=== PATIENT | female | born 1975 | race Caucasian/White ===

== ENCOUNTER 2016-04-15 15:15 | Outpatient (RCR) | payer OTHER ==
--- NOTE | 2016-03-14 15:06 | PT/OT/ST INITIAL EVALUATION ---
[facility]. PHYSICAL/OCCUPATIONAL THERAPY [address] [place] [id number] PLAN OF CARE/ASSESSMENT FOR OUTPATIENT REHABILITATION (Complete for Initial Claims Only) 1. PATIENT'S NAME Pooja Martinez 2. ACC. No [id number] 3. PRIMARY DX Right hip pain 4. SECONDARY DX Hip weakness 5. ONSET DATE End of December 2015 6. REFERRAL DATE 7. SOC. DATE/TIME 03/08/2016 3:09 p.m. 8. PRIOR LEVEL OF FUNCTION; PERTINENT HISTORY (Prior therapy results, reason for referral.) S: Prior to therapy, the patient did consent to today's evaluation and treatment. The patient is a 40-year-old female referred to physical therapy by Dr. You to address right hip pain. The patient does rate her overall and general health as good. The patient states that at the end of December 2015, she began to experience right hip and thigh pain for unknown reasons. The patient does state at the time she had started yoga and was additionally participating in volleyball, but knows of no specific incident that caused this condition. The patient states she has tried new shoes, thinking this could be a contributing factor, with no relief. The patient does state that the right hip does feel unstable. Prior function: Includes the patient being able to participate in high-level activities including yoga, volleyball and unlimited activities with no pain. Current function: Currently the patient is having pain with walking, as this pulls in the front of her hip and down to the inside of her knee. The patient additionally states activities such as getting out of a car or any activities that causes her to adduct her right lower extremity increases the pain as well and causes a catching in the right hip. The patient is unable to work out due to this as well. Rolling in bed increases her pain as well causing her to toss and turn at night due to pain in the hip. Therapy History: The patient has had no previous physical therapy for this condition, but has received a massage, which did not help significantly. No obstacles to delivery of care are observed. Maximal pain level 9/10. The patient states it is at a constant level of 7/10. The patient describes the pain as a sharp shooting pain that is occasionally burning and aching at the right anterior hip. Aggravating factors include stairs. Relieving factors include ibuprofen. Diagnostic tests: No diagnostic tests have been performed at this time. Past medical history: Does include previous bilateral knee scopes, lax joints. None other significant is reported. Medication list: [id number] medications only. The patient's goal for physical therapy is to be able to get rid of the pain and back to normal activities including working out. 9. INITIAL ASSESSMENT/SAFETY PRECAUTIONS/MEDICAL COMPLICATIONS (Level of function at start of care. Be specific, use objective measures, list problems.) O: APPEARANCE AND OBSERVATION: The patient presents as a middle aged female in apparently healthy condition. She does ambulate with a normalized gait pattern; however, she does have increased external rotation on the right lower extremity as compared to the left. The patient additionally with bed mobility did report catching in the right hip when adducting to bring her leg onto the bed. PALPATION: With palpation the patient has significant increased tone and tightness throughout the adductor group, especially gracilis and adductor yaqulein. The patient has point tenderness at the hip flexor on the right, but this required deep palpation to reproduce indicating probable iliacus/psoas tightness and involvement with potential involvement of Sartorius and rectus femoris. SPECIAL TESTS: Include a negative TARIQ test. The patient had a slight increase in laxity at the joint with inferior glide at the right hip, as compared to the left. RANGE OF MOTION/FLEXIBILITY: Throughout bilateral hamstrings, piriformis, adductors is within normal limits and grossly equal bilaterally. STRENGTH: Throughout bilateral lower extremity is grossly 4+/5 throughout with the exception of hip abduction, which is 3-/5 bilaterally with difficulty maintaining hip abduction once placed there by the therapist. TODAY'S TREATMENT: Following the initial evaluation ultrasound treatment was performed throughout the adductor group. ASTYM treatment was then performed through the right hip per protocol. Stretching was also performed and issued to the patient. 10. INITIAL POC: (Specify procedures, modalities, short and penitentiary goals) A: The patient presents at physical therapy with diagnosis of right hip pain with resultant increased tone of the right adductors, increased pain in the right adductor and hip flexor, decreased sleeping ability. PROGNOSIS: This patient has a good prognosis with regular therapy attendance and compliance with home exercise program. This patient is expected to benefit from physical therapy services in order to decreased pain, increased hip abduction strength to return to full prior activities. OUTCOME ASSESSMENT: Lower extremity functional index which scored 50/80. GOALS: 1. The patient to be independent and compliant with home exercise program in 1 week. 2. The patient with a 50% decrease in maximum right hip pain in 2 weeks to allow sleeping at night. 3. The patient with bilateral hip adduction at least 4/5 throughout in 5 weeks to allow getting out of the car with no pain. 4. The patient with a lower extremity functional index at least 70/80 in 6 weeks to allow returning to working out. The diagnosis, prognosis, treatment plan, risks and expected outcome were discussed with the patient and the patient did agree to today's established plan of care. P: Plan to treat the patient 2 times per week for 6 weeks in order to address right hip pain. Therapeutic treatments to include modalities to decrease pain, inflammation and spasming. Manual therapy techniques as indicated. Therapeutic exercise targeting active range of motion and strengthening, gait training, balance and proprioceptive training, and patient education and home exercise program to be advanced as warranted. 11. PHYSICIAN SIGNATURE ? ON FILE OR ENTER HERE: 12. DATE: I certify the need for these services furnished under this plan of care and if for partial hospitalization. 13. CERTIFICATION FROM THROUGH
[~2016-04-15 15:15] MED LIST: CEPH-507 PO; PHEN-640 PO; allegra; bc
== END 2016-04-21 09:07 | disposition home or self-care (01) ==
LOC: PT 15:15
PROVIDERS: ATTEND Family Medicine
DX: M79.651 Pain in right thigh (principal); M25.551 Pain in right hip

== ENCOUNTER → 2016-04-22 | Outpatient (CLI) | payer OTHER ==
--- NOTE | 2016-04-22 13:13 | Diagnostic Imaging Report ---
PROCEDURE: MRI right joint lower extremity without contrast. TECHNIQUE: Multiplanar, multisequence non contrast-enhanced MRI of the right lower extremity was accomplished. INDICATION: Right hip pain. COMPARISON: None available. FINDINGS: Well-defined T2 hyperintensities with circumscribed margins connecting with the central canal within the sacrum are present, consistent with Tarlov cysts. Bone marrow signal intensity is mildly heterogeneous without focal abnormality. In particular, no marrow edema. Bone marrow signal intensity within the bilateral femoral heads in particular is unremarkable without evidence of avascular necrosis. Insertion site of the hamstrings is unremarkable. Minimally increased T2-weighted signal is identified just lateral to the greater trochanters bilaterally. Trace right hip joint effusion. No significant left hip joint effusion. No additional focal fluid collection. Acetabular labrum is not optimally evaluated without the use of intra-articular contrast. No significant free fluid within the pelvis. No muscular atrophy or hypertrophy. The urinary bladder is decompressed. IMPRESSION: 1. Minimally increased T2-weighted signal overlying the bilateral greater trochanters. Findings are favored to relate to mild trochanteric bursitis. 2. Trace right hip joint effusion. 3. No evidence of an acute osseous abnormality or avascular necrosis of the femoral heads. 4. Additional findings as above. Dictated by: Dictated on workstation # [id number]
== END ==
LOC: RAD 09:45
PROVIDERS: ATTEND Family Medicine
DX: M25.551 Pain in right hip (principal); M25.451 Effusion, right hip
CPT/HCPCS: 73721

== ENCOUNTER → 2016-05-16 | Outpatient (CLI) | payer OTHER | LOC: RAD 08:30 | PROVIDERS: ATTEND Orthopaedic Surgery | DX: M25.551 Pain in right hip (principal); Z32.02 Encounter for pregnancy test, result negative | CPT/HCPCS: 36415; 73525; 73722; 84703; A9579 ==

== ENCOUNTER → 2016-06-30 | Outpatient (CLI) | payer OTHER ==
[~2016-06-30] MED LIST changes: -CEPH-507 PO; -PHEN-640 PO; +ROPIVACAINE 1% 10 MG/ML (NAROPIN) 10 ML AMPUL ONE; +SODIUM CHLORIDE VIAL (PF) 10 ML IV ONE; -allegra; -bc; +methylPREDNISolone 80 MG/ML (DEPO MEDROL) VIAL IM ONE
== END ==
LOC: PMC 09:26
PROVIDERS: ATTEND Orthopaedic Surgery Orthopaedic Trauma
DX: M76.11 Psoas tendinitis, right hip (principal)
CPT/HCPCS: 20610; J1040; J2795; J7050

== ENCOUNTER → 2016-08-01 | Outpatient (CLI) | payer OTHER ==
[~2016-08-01] MED LIST changes: +CEPH-507 PO; +PHEN-640 PO; -ROPIVACAINE 1% 10 MG/ML (NAROPIN) 10 ML AMPUL ONE; -SODIUM CHLORIDE VIAL (PF) 10 ML IV ONE; +allegra; +bc; -methylPREDNISolone 80 MG/ML (DEPO MEDROL) VIAL IM ONE
--- NOTE | 2016-08-01 15:22 | Diagnostic Imaging Report ---
INDICATION: Fall, pain and swelling. EXAMINATION: Left elbow, 08/01/2016. FINDINGS: Three views of the elbow. There is no joint effusion. There are no acute fractures or dislocations. Mild spurring at the radial head is seen. IMPRESSION: 1. Degenerative findings but no acute abnormalities appreciated. If pain persists, a followup in 7-10 days recommended. Dictated by: Dictated on workstation # [id number]
== END ==
LOC: RAD 14:09
PROVIDERS: ATTEND Family Medicine
DX: M25.521 Pain in right elbow (principal)
CPT/HCPCS: 73080

== ENCOUNTER 2016-08-02 15:15 | Outpatient (RCR) | payer OTHER ==
--- NOTE | 2016-07-28 15:17 | PT/OT/ST INITIAL EVALUATION ---
Department of Health and Human Services Form Approved Health Care Financing Administration OMB No. [id number] PLAN OF CARE/ASSESSMENT FOR OUTPATIENT REHABILITATION (Complete for Initial Claims Only) 1. PATIENT'S NAME Pooja Martinez 2. ACC # [id number] 3. HICN NA 4. PROVIDER NO. [id number] 5. TYPE: PT 6. PRIOR HOSPITALIZATION NA 7. PRIMARY DX Right iliopsoas tendinitis. 8. SECONDARY DX NA 9. ONSET DATE December 2015 10. REFERRAL DATE Na 11. SOC. DATE 07-13-16 12. TIME OF EVAL 9:08 a.m. 12. REFERRING PHYSICIAN hKanh Lora MD 13. CHARGES/UNITS NA 14. G CODES NA 15. PRIOR LEVEL OF FUNCTION; PERTINENT HISTORY (Prior therapy results, reason for referral.) S: Prior to therapy the patient did consent to today's evaluation and treatment. The patient is a 41-year-old female referred to physical therapy by Dr. Khanh Lora to address right iliopsoas tendinitis. Personal health rating: The patient does rate her overall and general health as good. Primary Complaint: The patient states she has been having chronic right hip for approximately 6 months, especially with activities such as squatting and any right leg activities including fast walking. The patient then went to see a specialist after undergoing several diagnostic tests, which showed no significant findings. The orthopedic doctor did diagnose her with iliopsoas tendonitis. This muscle was injected on June 30. The patient states it has been steadily improving since, but she feels weak in her hips, especially on the right side and continues to have a pressure sensation on the right lower extremity with squatting. She additionally reports a "catch in her right hip with popping frequently as well. Prior level of function: Include the patient being unlimited in all function, including work activities where the patient is employed as a equipment operator/laborer/supervisor. the patient is additionally able to participate in high-level activities such as working out performing yoga, and playing competitive volleyball. Current level of function: Includes the patient having difficulty or increased pain with squatting, and pain whenever she moves her right leg out to the side. Therapy History: Includes PT in the past with pain inhibiting progression. Obstacles to delivery of care not observed. Pain level: Maximal pain level is 1/10 and the patient describes the pain as an achy sensation. Aggravating factors: As previously mentioned. Relieving factors: Include diclofenac, which helps at times. Diagnostic testing: Include an MRI, which showed no significant hip findings. Past medical history: No other significant past medical history is reported. Current medications: Includes diclofenac. Patient's Goal: The patient's goal for physical therapy is to get normal use of her right hip back and be able to participate in working out and volleyball. 16. INITIAL ASSESSMENT/SAFETY PRECAUTIONS/MEDICAL COMPLICATIONS (Level of function at start of care. Be specific, use objective measures, list problems.) O: APPEARANCE, OBSERVATION AND GAIT: The patient presents as a middle aged female in apparently healthy condition. She does ambulate with an antalgic gait pattern with a shortened step length bilaterally as well as bilateral Trendelenburg gait pattern. The patient additionally has decreased stance time on the right. Poor stability of the hip and pelvic musculature. PALPATION: With palpation there is a palpable and audible hip pop when the patient goes from a knee or hip flexed position to an extended position. The patient does have increased tone throughout the iliopsoas on the right, but no specific point tenderness. RANGE OF MOTION/FLEXIBILITY: Piriformis flexibility is approximately 30% limited on the right, within normal limits on the left. Hamstring flexibility is within normal limits and grossly equal bilaterally. Hip internal rotation is 32 degrees on the right, 37 degrees on the left. External rotation is 22 degrees on the right and 22 degrees on the left. Hip extension is 7 degrees on the right with pain reported and 14 degrees on the left. STRENGTH: Throughout the left lower extremity is grossly 5/5 throughout the knee and ankle. Hip motions grossly 4-/5 with the exception of hip abduction which is 3+/5. Throughout the right lower extremity knee and ankle motions are grossly 5/5. Hip abduction on the right 3-5. All other hip motions grossly 4-/5. TODAY'S TREATMENT: Following the initial evaluation therapeutic exercise was performed and issued as a home exercise program. This did cause slight increased pain at the right hip despite low level activity. A vasopneumatic device with cold and compression was then performed throughout the right hip. 17. INITIAL POC: (Specify procedures, modalities, short and terminal clerk goals) A: The patient presents to physical therapy with diagnosis of right iliopsoas tendonitis with resultant decreased active range of motion, decreased strength, increased pain, and decreased activity tolerance. PROGNOSIS: This patient does have a good prognosis with regular therapy attendance and compliance with home exercise program. This patient is expected to benefit from physical therapy services in order to have increased active range of motion, increased strength for return to full prior activities. OUTCOME ASSESSMENT: Included the Lower Extremity Functional Index which scored 75/80. INFORMED CONSENT: The diagnosis, prognosis, treatment plan, risks and expected outcomes were discussed with the patient and the patient did agree to today's established plan of care. SHORT TERM GOALS: 1. The patient to be independent and compliant with home exercise program in 1 week. 2. The patient with right hip extension at least 15 degrees in 3 weeks to allow full step length. 3. The patient with bilateral hip strength at least 4/5 in 6 weeks to allow return to workouts. 4. The patient with a Lower Extremity Functional Index score at least 77/80 in 8 weeks to allow return to full prior activity including participation in sports. P: Plan to treat the patient 2 times per week for 8 weeks in order to address right iliopsoas tendonitis. Therapeutic treatments to include modalities to decrease pain, inflammation and tightness. Manual therapy techniques as indicated. Therapeutic exercise targeting active range of motion and strengthening, gait training, balance proprioceptive training and patient education in home exercise program to be advanced as warranted. 18. FREQUENCY 2 times per week 19. DURATION 8 weeks 20. FUNCTIONAL LEVEL (End of claim period) 21. PHYSICIAN SIGNATURE ? ON FILE OR ENTER HERE: 22. DATE: I certify the need for these services furnished under this plan of care and if for partial hospitalization. 23. CERTIFICATION FROM THROUGH FORM [id number]
== END 2016-08-07 12:00 | disposition home or self-care (01) ==
LOC: PT 15:15
PROVIDERS: ATTEND Orthopaedic Surgery Orthopaedic Trauma
DX: M25.551 Pain in right hip (principal); M76.11 Psoas tendinitis, right hip

== ENCOUNTER → 2016-09-06 | Outpatient (CLI) | payer OTHER ==
[~2016-09-06] MED LIST changes: +ROPIVACAINE 1% 10 MG/ML (NAROPIN) 20 ML AMPUL ONE; +TRIAMCINOLONE ACET 40 MG/ML (KENALOG-40) 1 ML VIAL ONE
--- NOTE | 2016-09-06 15:03 | PAIN MANAGEMENT ---
Date of note: 09/06/2016 PROCEDURE: Iliopsoas injection on the right side. This is a 41-year-old patient of Dr. Khanh Lora. The patient presents with iliopsoas tendonitis bursitis in the right hip join. She had a previous injection by me approximately a month to a month and a half ago. She had very good results and started physical therapy again and started having difficulty. She is not as bad she was however she starting to notice the increase in pain. Informed consent was achieved. Ultrasound was attempted however the ultrasound machine was malfunctioning so fluoroscopy was provided. Once the areas identified, were sterilized with Betadine, scrubbed, and then localized with Xylocaine 1% a total of 3 mL used with a 27-gauge without paresthesia. After the localization, a spinal needle was inserted and impacted the acetabulum and this then withdrawn and slightly injected with Radiopaque dye 1 1/2 mL of Isovue 240. After the dye was injected, the outline of the psoas muscle was clearly identified. This was then followed up with Kenalog 40 mg with Ropivacaine 0.5% a total of 5 mL. Afterwards the patient was able to walk correctly without pain however she did notice that the area felt full and I explained to her that was due to the amount of injectate that she had received. The patient is to call me in 3 days. I will follow her progress from there.
== END ==
LOC: PMC 11:55
PROVIDERS: ATTEND Orthopaedic Surgery Orthopaedic Trauma
DX: M25.551 Pain in right hip (principal); M26 Dentofacial anomalies [including malocclusion]
CPT/HCPCS: 20551; 77002; J2795; J3301